=== PATIENT | female | born 1990 | race Caucasian/White ===

== ENCOUNTER 2021-05-19 18:14 | Emergency (ER) | payer SELFPAY ==
[2021-05-19 18:32] VITALS: BP 144/93; PULSE 88; RESP 18; TEMP 36.4; O2SAT 100
--- NOTE | 2021-05-19 19:04 | ED.GENADULT ---
HPI - General Adult General Chief complaint: Upper Respiratory Infection Stated complaint: head,neck and ear pain Time Seen by Provider: 05/19/21 18:37 Source: patient and RN notes reviewed Mode of arrival: ambulatory Limitations: no limitations History of Present Illness HPI narrative: Patient presents today complaining of 2-day history of left ear pain. Denies decreased hearing, drainage. Does report some dizziness associated with her left ear pain. She also reports that she woke up 2 days ago with left-sided neck pain that has now spread to the right side, without any injury or trauma. She currently rates her left ear pain 7/10, and her neck pain 10/10. Pain increases in her neck with any movement. She has tried no interventions for pain prior to arrival. 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 MD complaint: Ear pain, neck pain Related Data Home Medications Medication Instructions Recorded Confirmed lisinopril 5 mg PO DAILY 05/19/21 05/19/21 metformin 500 mg PO BID 05/19/21 05/19/21 Allergies Allergy/AdvReac Type Severity Reaction Status Date / Time No Known Allergies Allergy Verified 05/19/21 18:39 Review of Systems Review of Systems: CONSTITUTIONAL: Denies body aches, fever, chills, or sweats. EYES: Denies visual changes, redness, or discharge. ENT: Denies rhinorrhea, congestion, sore throat. + Ear pain CARDIOVASCULAR: Denies chest pain, palpitations, or edema. RESPIRATORY: Denies cough or dyspnea. GASTROINTESTINAL: Denies abdominal pain, nausea, vomiting, or diarrhea. GENITOURINARY: Denies dysuria or hematuria. SKIN: Denies rash, itching, or wounds. MUSCULOSKELETAL: Denies back pain, joint pain. + Neck pain NEUROLOGIC: Denies headache, numbness, tingling, or weakness.+ Dizziness PSYCH: Denies depression or anxiety. [facility] Past Medical History Medical History (Updated 05/19/21 @ 19:09 by Chika James, CORE MAKER, ) Hypertension Comments At time of signature, I have reviewed and agree with nursing past medical, surgical, social and family history unless otherwise noted. Please see nursing chart for further information. There is no relevant family history pertinent to the presenting complaint Exam Narrative: GENERAL: Well-appearing, well-nourished, and in no acute distress. HEAD: Normocephalic, atraumatic. EYES: EOMI. No redness or drainage. Conjunctivae normal. ENT: Mucous membranes pink and moist. Nares clear. No rhinorrhea. Right TM and ear canal normal. Left ear canal is erythematous without edema. Left TM is bulging with clear fluid, but without evidence of infection. Throat normal. Uvula midline. NECK: Supple. No lymphadenopathy. Bilateral cervical paraspinal muscles are tender to palpation, left greater than right. This extends to the superior trapezius area. Patient has pain with range of motion of the neck. CHEST: No respiratory distress. EXTREMITIES: Normal range of motion. No edema. SKIN: Warm, dry, no rash. Capillary refill normal. Normal skin turgor. NEURO: No focal deficits. Alert and oriented x3. Gait steady. PSYCH: Normal affect. No signs of depression or anxiety. Course Course Level of Care: Express Care Visit Vital Signs Vital signs: Vital Signs Temperature 97.5 F L 05/19/21 18:32 Pulse Rate 88 05/19/21 18:32 Respiratory Rate 18 05/19/21 18:32 Blood Pressure 144/93 H 05/19/21 18:32 Pulse Oximetry 100 05/19/21 18:32 Temperature 97.5 F L 05/19/21 18:32 Pulse Rate 88 05/19/21 18:32 Respiratory Rate 18 05/19/21 18:32 Blood Pressure 144/93 H 05/19/21 18:32 Pulse Oximetry 100 05/19/21 18:32 Reviewed. Pt has been instructed to follow up with her PCP regarding her elevated blood pressure today. Medical Decision Making Differential Diagnosis Differential Diagnosis: Acquired torticollis, neck strain, otitis media, otitis externa, ruptured TM, serous otitis, eusta
== END 2021-05-19 19:08 | disposition home or self-care (01) ==
PROVIDERS: Emergency Provider Nurse Practitioner
DX: M43.6 Torticollis (principal); H60.502 Unspecified acute noninfective otitis externa, left ear; I10 Essential (primary) hypertension
CPT/HCPCS: 99203; G0463